=== PATIENT | male | born 2000 | race Caucasian/White ===

== ENCOUNTER 2022-10-26 07:08 | Emergency (ER) | payer OTHER ==
[~2022-10-26] VITALS: Ht 177.8 cm; Wt 81.5 kg
[2022-10-26] MEDS ORDERED: BACITRACIN OINTMENT 30GM TUBE TOP ONE (07:30)
[2022-10-26] MEDS ORDERED: CEPHALEXIN 500 MG CAP PO ONE (07:30)
[2022-10-26] MEDS ORDERED: CEPH500C PO (07:56)
[2022-10-26 08:12] VITALS: BP 128/76
== END 2022-10-26 08:15 | disposition home or self-care (01) ==
LOC: M ED 07:08
DX: T24.231A Burn of second degree of right lower leg, initial encounter (principal); T31.0 Burns involving less than 10% of body surface; L03.115 Cellulitis of right lower limb; X03.0XXA Exposure to flames in controlled fire, not in building or structure, initial encounter; F17.200 Nicotine dependence, unspecified, uncomplicated